=== PATIENT | male | born 1960 | race Caucasian/White ===

== ENCOUNTER 2023-10-15 07:05 | Day surgery (SDC) | payer OTHER ==
[~2023-10-15] VITALS: Ht 185.4 cm; Wt 78.6 kg
[~2023-10-15 07:05] MED LIST: SODIUM CHLORIDE 0.9% 1,000 ML ONE
[2023-10-15] MEDS: SODIUM CHLORIDE 0.9% 1,000 ML IV ONE (08:10)
[2023-10-15] MEDS ORDERED: ERGO500054 PO (08:19)
[2023-10-15] MEDS ORDERED: MIDAZOLAM HCL 2 MG/2 ML VIAL ONE (08:19)
[2023-10-15] MEDS ORDERED: BENZ-227 PO (08:19)
[2023-10-15] MEDS ORDERED: AMOX1TAB16 PO (08:19)
[2023-10-15] MEDS ORDERED: MOME13HF11 IH (08:19)
[2023-10-15] MEDS ORDERED: IBUP-2342 PO (08:19)
[2023-10-15] MEDS ORDERED: FentaNYL CITRATE PF 100 MCG/2 ML VIAL ONE (08:19)
[2023-10-15] MEDS ORDERED: ATOR10TA PO (08:19)
[2023-10-15 09:15] VITALS: PULSE 44; RESP 18; O2SAT 97
[2023-10-15] MEDS ORDERED: MethylPREDNISolone SOD SUCC 125 MG/2 ML VIAL ONE (09:48)
[2023-10-15] MEDS: MethylPREDNISolone SOD SUCC 125 MG/2 ML VIAL IVP ONE (09:52)
[2023-10-15] MEDS ORDERED: BENZOCAINE 20% 50 MCG/SPRAY 57 GM ONE (14:35)
[2023-10-15] MEDS ORDERED: LIDOCAINE 2% 11 ML JELLY ONE (14:35)
[2023-10-15] MEDS ORDERED: LIDOCAINE 4% 50 ML SOLUTION ONE (14:35)
[2023-10-15] MEDS ORDERED: ALBUTEROL SULFATE 2.5 MG/0.5 ML NEB SOLUTION NEB ONE (14:35)
== END 2023-10-15 11:50 | disposition home or self-care (01) ==
LOC: SURGERY 07:05
PROVIDERS: ATTEND Internal Medicine Critical Care Medicine
DX: R05.3 Chronic cough (principal); J38.4 Edema of larynx; B37.0 Candidal stomatitis; R91.8 Other nonspecific abnormal finding of lung field; J84.10 Pulmonary fibrosis, unspecified; J98.09 Other diseases of bronchus, not elsewhere classified; J98.8 Other specified respiratory disorders; J45.909 Unspecified asthma, uncomplicated; F17.210 Nicotine dependence, cigarettes, uncomplicated
CPT/HCPCS: 87206; 87101; 87220; 87070; 31623; 31624; 71045; 87015; J3010; J2250; J2919; Q9967; J7030; J7613; Z7610